=== PATIENT | male | born 1985 | race Caucasian/White ===

== ENCOUNTER 2018-08-01 13:51 | Emergency (ER) | payer OTHER ==
[~2018-08-01] VITALS: Ht 175.3 cm; Wt 116.1 kg
[2018-08-01 18:00] VITALS: BP 142/84
== END 2018-08-01 21:26 | disposition home or self-care (01) ==
LOC: ER 20:17
DX: M25.562 Pain in left knee (principal); F12.10 Cannabis abuse, uncomplicated
CPT/HCPCS: 99283; L1830